=== PATIENT | female | born 1965 | race Two or more races ===

== ENCOUNTER → 2023-08-17 | Day surgery (SDC) | payer OTHER ==
[~2023-08-17] VITALS: Ht 170.2 cm; Wt 86.6 kg
[~2023-08-17] MED LIST: ATOR80TA PO; KETAMINE 50mg/ML 1ml syringe ONE; MIDAZOLAM HCL 2MG/2ML 2ml VIAL (1mg/ml) ONE; OMEP20TA PO; ONDANSETRON HCL 4 MG/2 ML VIAL ONE; PROPOFOL 10 MG/ML 20 ML IV ONE; SIMETHICONE 40 MG/0.6 ML ORAL DROP ONE; SODIUM CHLORIDE LOCK 10 ML ONE; fentaNYL CITRATE 100 MCG/2 ML VL ONE
[2023-08-17 10:00] VITALS: TEMP 97.2; O2SAT 100
[2023-08-17 10:25] VITALS: BP 130/78; PULSE 73; RESP 16; O2SAT 94
== END | disposition home or self-care (01) ==
LOC: GI 07:17
PROVIDERS: ATTEND Internal Medicine Gastroenterology
DX: Z12.11 Encounter for screening for malignant neoplasm of colon (principal); D12.2 Benign neoplasm of ascending colon; D12.4 Benign neoplasm of descending colon; K64.8 Other hemorrhoids; D17.5 Benign lipomatous neoplasm of intra-abdominal organs; E78.5 Hyperlipidemia, unspecified; E66.01 Morbid (severe) obesity due to excess calories; F17.210 Nicotine dependence, cigarettes, uncomplicated; Z90.710 Acquired absence of both cervix and uterus; Z79.899 Other long term (current) drug therapy; Z98.890 Other specified postprocedural states; Z68.30 Body mass index [BMI] 30.0-30.9, adult
CPT/HCPCS: 45380; 88305; J2250; J2405; J2704; J3010; J7030